=== PATIENT | female | born 1935 | race Hispanic/Latino ===

== ENCOUNTER 2016-06-21 09:51 | Day surgery (SDC) | payer MEDICARE ==
[2016-06-21] MEDS ORDERED: WATER FOR IRRIG STERILE IR ONE (10:46)
[2016-06-21] MEDS ORDERED: NACL 0.9% 1000 ML 1,000 ML IV SCH (11:00)
[2016-06-21] MEDS ORDERED: PROVENTIL IH ONE (11:02)
--- NOTE | 2016-06-21 11:41 | Anesthesia Consultation ---
Anesthesia Consult and Med Hx Date of service: 06/21/16 - Airway Anesthetic Teeth Evaluation: Dentures ROM Head & Neck: Inadequate Mental/Hyoid Distance: Inadequate Mallampati Class: Class III Intubation Access Assessment: Probably Good - Pulmonary Exam CTA: No (wheezing bilateral) - Cardiac Exam Cardiac Exam: RRR - Pre-Operative Health Status ASA Pre-Surgery Classification: ASA3 Proposed Anesthetic Plan: MAC - Pulmonary Hx Smoking: No ( smoked in house >30 years) Hx Respiratory Symptoms: Yes (pneumonia and chronic bronchitis) SOB: Yes COPD: Yes (does not use nebulizer as instructed) Hx Pneumonia: Yes - Cardiovascular System Hx Hypertension: Yes - Central Nervous System Hx Neuromuscular Disorder: No Hx Back Pain: Yes (DJD, severe back pain ) - Gastrointestinal Hx Gastroesophageal Reflux Disease: Yes - Other Systems Hx Alcohol Use: No Hx Substance Use: No Hx Cancer: Yes (h/o colon cancer) - Additional Comments Anesthesia Medical History Comments: Patient wheezing bilaterally in preop, given Albuterol Nebulizer. Wheezing diminished but still present post neb.
--- NOTE | 2016-06-21 11:42 | Anesthesia Day of Surgery ---
Anesthesia Day of Surgery - Day of Surgery Patient Examined: Yes Patient H&P Reviewed: Yes Patient is NPO: Yes
[2016-06-21] MEDS ORDERED: XYLOCAINE MPF 2% ONE (11:46)
[2016-06-21] MEDS ORDERED: NEO SYNEPHRINE/NS Syringe(OR USE) IV ONE (11:46)
[2016-06-21] MEDS ORDERED: SUBLIMAZE ONE (11:57)
[2016-06-21] MEDS ORDERED: XYLOCAINE 2% INFILTRATI ONE (12:09)
[2016-06-21] MEDS ORDERED: DIPRIVAN 10 MG/ML IV ONE ×2 (12:51)
--- NOTE | 2016-06-21 12:54 | Short Stay Summary ---
Short Stay Documentation Date of service: 06/21/16 Narrative H&P: The patient presents for endoscopic evaluation for severe constipation, history of colon polyps and epigastric pain. - History Past Medical History: cancer (cancer of breast), COPD Past Surgical History: Other (breast surgery, spinal surgery, hernia repair) Social history: no significant social history, - Allergies and Medications Current Medications: Allergies gabapentin Allergy (Verified 06/21/16 10:41) Hives Home Medications Medication Instructions Recorded Confirmed Last Taken Type Prednisone 10 mg PO DAILY 06/21/16 06/21/16 06/17/16 History oxyCODONE 10 mg PO PRN PRN 06/21/16 06/21/16 06/18/16 History Active Medications Sodium Chloride (Nacl 0.9% 1000 Ml) 1,000 mls @ 50 mls/hr IV DIRECT ASHLEY Last Admin: 06/21/16 11:21 Dose: 50 mls/hr - Physical exam General appearance: no acute distress, disheveled Integumentary: no rash, no growths, no abnormal pigmentation HEENT: Atraumatic, PERRLA, EOMI, Mucous membr. moist/pink Breasts: deferred Heart: Regular rate, Normal S1, Normal S2, No murmurs, no Gallops Gastrointestinal: normoactive bowel sounds, no tenderness, no distended, no masses, no guarding, no organomegaly Female Genitourinary: deferred Rectal Exam: normal exam-external/orifice Extremities: no ischemia, pulses intact, pulses symmetrical, No edema, normal temperature, normal color, Full ROM Neurological: Normal gait, Normal speech, Strength at 5/5 X4 ext, Normal tone, Sensation intact, Cranial nerves 3-12 NL - Brief post op/procedure progress note Date of procedure: 06/21/16 Findings: see dictations Estimated blood loss: none Pathology: list (1.antral biopsies,2. ascending colon polyp) Specimen disposition: to lab Condition: stable - Disposition Condition at discharge: Good Disposition: DISCHARGED TO HOME OR SELFCARE - Discharge Diagnoses (1) Epigastric abdominal pain Status: Acute (2) Constipation Status: Acute (3) Personal history of colonic polyps Status: Acute
--- NOTE | 2016-06-21 12:59 | Operative Report ---
Operative Report Operative Report: Date of procedure: 06/21/2016 Preprocedure diagnosis: Progressive constipation. History of colon polyps. History of colon cancer. Post procedure diagnosis: Moderate left colon diverticulosis, benign-appearing ascending colon polyp. Procedure: Colonoscopy to the cecum with cold snare polypectomy Endoscopist: Dr. Deng Anesthesia: Monitored anesthesia care per anesthesia department Estimated blood loss: 0 Medications: Monitored anesthesia care. See separate report by anesthesia for details. After careful discussion of the nature and purpose of the procedure as well as details of the technique risks benefits and alternatives the patient gave consent. Please see recent history and physical from the office. The patient was placed in the left lateral decubitus position and medicated per anesthesia. A rectal exam was performed sphincter tone was normal there were no masses palpable. The [employer] 570 scope was passed transanally and advanced under continuous direct vision without difficulty to the cecum. The colon was well prepared. The cecum was normal. There was a 7 mm pedunculated polyp in the proximal ascending colon. The polyp was removed with cold snare and retrieved by suction. There was no bleeding post polypectomy. The ascending colon was otherwise normal and on forward and retroflexed views. The transverse colon normal. The descending colon and sigmoid colon revealed moderate diverticulosis. The rectum was normal on forward and retroflexed views. The procedure was well-tolerated overall and the patient was observed in recovery. Conclusions: Small benign-appearing ascending colon polyp. Moderate left colon diverticulosis. Plan: Await pathology. Repeat colonoscopy as needed. Consider starting Movantik for opioid-induced constipation Signed electronically: Cristiano Deng M.D.
--- NOTE | 2016-06-21 13:03 | Operative Report ---
Operative Report Operative Report: Date of procedure: 06/21/2016 Procedure: Esophagogastroduodenoscopy with antral biopsies. Preprocedure diagnosis: Epigastric pain Post procedure diagnosis: Multiple shallow duodenal bulb and proximal duodenal ulcers. Endoscopist: Dr. Deng Anesthesia: Monitored anesthesia care per anesthesia department Medications: Propofol per anesthesia Estimated blood loss: 0 After careful discussion of the nature and purpose of the procedure as well as details the technique risks benefits and alternatives consent was obtained. The patient was placed in the left lateral decubitus position and medicated per anesthesia. The tip of the [employer] 570 video scope was passed per orum under direct vision into the esophagus and advanced into the stomach and descending duodenum. The descending duodenum the duodenal bulb revealed multiple shallow ulcers. The scope was withdrawn into the stomach and the stomach then gently insufflated with air. The antrum was normal. Multiple biopsies were taken in the antrum to assess for H. pylori. The stomach was further insufflated and the scope was then retroflexed and partially withdrawn. The cardia, fundus, and body of the stomach were within normal limits and easily distensible.The scope was then withdrawn in the forward position. The esophagogastric junction was at 40cm. The esophageal body was normal throughout. The procedure was was well tolerated and the patient was observed in recovery. Impressions: Multiple shallow duodenal bulb and proximal duodenal ulcers. Plan: Start omeprazole. Await pathology results. The patient is to call me in 1 week. Electronically signed: Cristiano Deng MD
[2016-06-21 13:34] VITALS: BP 116/65
== END 2016-06-21 09:52 | disposition home or self-care (01) ==
LOC: GIO 09:51
PROVIDERS: ATTEND Internal Medicine Gastroenterology
DX: D12.2 Benign neoplasm of ascending colon (principal); K29.50 Unspecified chronic gastritis without bleeding; K26.9 Duodenal ulcer, unspecified as acute or chronic, without hemorrhage or perforation; K57.30 Diverticulosis of large intestine without perforation or abscess without bleeding; J44.9 Chronic obstructive pulmonary disease, unspecified; I10 Essential (primary) hypertension; K21.9 Gastro-esophageal reflux disease without esophagitis; M19.90 Unspecified osteoarthritis, unspecified site; Z85.038 Personal history of other malignant neoplasm of large intestine; Z87.01 Personal history of pneumonia (recurrent); Z85.3 Personal history of malignant neoplasm of breast; Z98.890 Other specified postprocedural states
CPT/HCPCS: 43239; 45385; 88305; 88342; J2370; J2704; J3010; J7030